=== PATIENT | female | born 1945 | race Two or more races ===

== ENCOUNTER 2022-03-16 03:43 | Emergency (ER) | payer MEDICARE, MEDICAID ==
[~2022-03-16] VITALS: Ht 170.2 cm; Wt 90.0 kg
[2022-03-16] MEDS ORDERED: ACETAMINOPHEN WITH CODEINE 300/30MG TABLET PO ONE (05:30)
[2022-03-16] MEDS ORDERED: OXYC-100 PO (06:35)
[2022-03-16] MEDS ORDERED: OXYCODONE HCL/ACETAMINOPHEN 5/325MG TABLET PO ONE (10:30)
[2022-03-16 11:50] VITALS: BP 128/74
== END 2022-03-16 11:53 ==
LOC: ER 03:43
DX: M25.572 Pain in left ankle and joints of left foot (principal); M79.661 Pain in right lower leg; I10 Essential (primary) hypertension; Z86.73 Personal history of transient ischemic attack (TIA), and cerebral infarction without residual deficits
CPT/HCPCS: 73590; 73610; 99284

== ENCOUNTER 2025-03-22 16:44 | Inpatient (IN) | payer MEDICARE, MEDICAID ==
[~2025-03-22] VITALS: Ht 167.6 cm; Wt 67.1 kg
[~2025-03-22 16:44] MED LIST: CLOP-31 MT; HYDR25TA PO; LIP40 MT; NIFE90TA2 MT; OXYC-100 PO; TRAZ-252 PO
[2025-03-22] MEDS ORDERED: ONDANSETRON HCL 4MG/2ML INJ IV STA (19:09)
[2025-03-22] MEDS ORDERED: MORPHINE SULFATE 2 MG/ML INJ (NOT FOR IM USE) IV ONE (19:15)
[2025-03-22 19:48] LABS: BASOPHILS % 0.3 % (0.0-2.0); EOSINOPHILS % 2.4 % (0.0-5.0); HEMATOCRIT. 32.2 % (36.0-48.0); HEMOGLOBIN. 10.4 g/dL (12.0-16.0); LYMPHOCYTES % 35.8 % (20.0-50.0); MEAN CORPUSCULAR HEMOGLOBIN 28.4 pg (28.0-32.0); MEAN CORPUSCULAR HGB CONC 32.5 g/dL (31.0-37.0); MEAN CORPUSCULAR VOLUME 87.6 fL (81.0-99.0); MEAN PLATELET VOLUME 8.6 fl (7.4-10.4); MONOCYTES % 9.5 % (2.0-8.0); PLATELET 178 x1000/uL (130-400); RED BLOOD CELL COUNT 3.67 mill/uL (4.2-5.4); RED CELL DISTRIBUTION WIDTH 15.6 % (11.6-14.6); WHITE BLOOD COUNT 5.4 x1000/uL (4.5-11.0)
[2025-03-22 19:54] LABS: CHLORIDE 107 mEq/L (98-107); POTASSIUM 4.1 mEq/L (3.5-5.1); SODIUM 142 mEq/L (136-145)
[2025-03-22 19:55] LABS: CARBON DIOXIDE 27 mEq/L (21-32)
[2025-03-22 19:56] LABS: CALCIUM 9.6 mg/dL (8.7-10.4)
[2025-03-22 20:00] LABS: GLUCOSE 107 mg/dL (70-105); PROTHROMBIN TIME 10.8 sec (9.6-11.0)
[2025-03-22 20:01] LABS: TROPONIN I HIGH SENSITIVITY 17 ng/L (3.0-34); UREA NITROGEN BLOOD 23 mg/dL (9-23)
[2025-03-22] MEDS: MORPHINE SULFATE 4 MG/ML INJ (FOR IV/IM USE) IV SCH (21:55)
[2025-03-22] MEDS: ONDANSETRON HCL 4MG/2ML INJ IV SCH (21:55)
[2025-03-22] MEDS: SODIUM CHLORIDE 0.9% 1,000 ML IV SCH (23:15)
[2025-03-22] MEDS ORDERED: GUAIFENESIN 200MG/10ML SUGAR FREE UDC PO PRN (23:15)
[2025-03-22] MEDS ORDERED: IPRATROPIUM/ALBUTEROL 0.5-3(2.5)MG/3ML NEB HHN PRN (23:15)
[2025-03-22] MEDS ORDERED: DOCUSATE SODIUM 100MG CAPSULE PO PRN (23:15)
[2025-03-22] MEDS ORDERED: ACETAMINOPHEN 325MG TABLET PO PRN ×2 (23:15)
[2025-03-22] MEDS ORDERED: ONDANSETRON HCL 4MG/2ML INJ IV PRN (23:15)
[2025-03-23] VITALS (7 sets, daily range): BP systolic 127–159; BP diastolic 55–78; PULSE 60–67; RESP 16–20; TEMP 35.4–36.8; O2SAT 98–100
[2025-03-23] MEDS: MORPHINE SULFATE 4 MG/ML INJ (FOR IV/IM USE) IV NR (01:22)
[2025-03-23] MEDS: KETOROLAC 15MG/ML VIAL IV PRN (05:18)
[2025-03-23] MEDS: HYDROCHLOROTHIAZIDE 25MG TABLET PO SCH (09:01)
[2025-03-23] MEDS: NIFEDIPINE XL 90MG TAB PO SCH (09:02)
[2025-03-23] MEDS: PANTOPRAZOLE 40MG DR TABLET PO SCH (09:02)
[2025-03-23] MEDS: CLOPIDOGREL 75MG TABLET PO SCH (09:02)
[2025-03-23] MEDS: ENOXAPARIN 40MG/0.4ML SYR SUBCUT SCH (09:09)
[2025-03-23 11:03] LABS: BASOPHILS % 0.4 % (0.0-2.0); EOSINOPHILS % 2.9 % (0.0-5.0); HEMATOCRIT. 30.6 % (36.0-48.0); LYMPHOCYTES % 31.2 % (20.0-50.0); MEAN CORPUSCULAR HEMOGLOBIN 28.6 pg (28.0-32.0); MEAN CORPUSCULAR HGB CONC 32.6 g/dL (31.0-37.0); MEAN CORPUSCULAR VOLUME 87.7 fL (81.0-99.0); MEAN PLATELET VOLUME 8.3 fl (7.4-10.4); MONOCYTES % 9.8 % (2.0-8.0); NEUTROPHILS % 55.7 % (40.0-76.0); PLATELET 169 x1000/uL (130-400); RED BLOOD CELL COUNT 3.48 mill/uL (4.2-5.4); RED CELL DISTRIBUTION WIDTH 15.8 % (11.6-14.6); WHITE BLOOD COUNT 4.7 x1000/uL (4.5-11.0)
[2025-03-23 11:06] LABS: CHLORIDE 105 mEq/L (98-107); POTASSIUM 3.9 mEq/L (3.5-5.1); SODIUM 140 mEq/L (136-145)
[2025-03-23 11:07] LABS: CALCIUM 8.9 mg/dL (8.7-10.4); CARBON DIOXIDE 29 mEq/L (21-32)
[2025-03-23 11:12] LABS: GLUCOSE 115 mg/dL (70-105); TRIGLYCERIDE 75 mg/dL (0-150); UREA NITROGEN BLOOD 17 mg/dL (9-23)
[2025-03-23 11:13] LABS: LDL CHOLESTEROL 67 mg/dL (5-100)
[2025-03-23 11:14] LABS: CHOLESTEROL 145 mg/dL (<200); CREATINE KINASE 55 IU/L (34-145); HDL CHOLESTEROL 58 mg/dL (>65)
[2025-03-23 11:16] LABS: T4 FREE 1.11 ng/dL (0.89-1.76)
[2025-03-23 11:17] LABS: THYROID STIMULATING HORMONE 0.65 uIU/mL (0.55-4.78)
[2025-03-23 11:20] LABS: IRON 89 ug/dL (50-170)
[2025-03-23 11:23] LABS: TOTAL IRON BINDING CAPACITY 287 ug/dl (250-425)
[2025-03-23 11:47] LABS: VITAMIN B12 SERUM 676 pg/mL (211-911)
[2025-03-23 11:48] LABS: FOLIC ACID (FOLATE) SERUM 18.71 ng/mL (>5.38)
[2025-03-23] MEDS: HYDROCODONE/ACETAMINOPHEN 5/325MG TABLET PO SCH (16:27)
[2025-03-23 17:27] LABS: CREATINE KINASE 62 IU/L (34-145)
[2025-03-23] MEDS: LORAZEPAM 0.5MG TABLET PO PRN (21:09)
[2025-03-23] MEDS: ATORVASTATIN CALCIUM 40MG TABLET PO SCH (21:10)
[2025-03-24] VITALS: BP 123/78; PULSE 62; RESP 20; TEMP 36.4; O2SAT 97
[2025-03-24] MEDS: QUETIAPINE FUMARATE 25MG TABLET PO NR (02:08)
[2025-03-24 04:00] VITALS: BP 172/72; PULSE 60; RESP 18; TEMP 36.6; O2SAT 98
[2025-03-24] MEDS: CLONIDINE 0.1MG TABLET PO PRN (06:07)
[2025-03-24 08:00] VITALS: BP 165/72; PULSE 57; RESP 16; TEMP 36.2; O2SAT 99
[2025-03-24 12:00] VITALS: BP 162/79; PULSE 58; RESP 16; TEMP 36.2; O2SAT 100
[2025-03-24 15:09] VITALS: BP 110/53; PULSE 87; TEMP 97.6; O2SAT 98
[2025-03-24 16:00] VITALS: BP 140/76; PULSE 81; RESP 20; TEMP 36.6; O2SAT 100
== END 2025-03-24 19:35 | disposition home health service (06) | DRG 563 ==
LOC: ER 16:44 → 6WST 22:06 → EDBEDREQTM 22:15 → EDBEDREQ 22:15 → EDBEDREQTM 22:32 → EDBEDREQ 22:32 → ENRESERV 22:55 → 7EST 03-23 13:19
PROVIDERS: ADMIT Hospitalist; ATTEND Hospitalist
PROC: 2W3CX1Z Immobilization of Right Lower Arm using Splint (ICD-10-PCS; principal; 2025-03-22)
DX: S62.326A Displaced fracture of shaft of fifth metacarpal bone, right hand, initial encounter for closed fracture (principal); I69.354 Hemiplegia and hemiparesis following cerebral infarction affecting left non-dominant side; T76.91XA Unspecified adult maltreatment, suspected, initial encounter; M19.011 Primary osteoarthritis, right shoulder; D64.9 Anemia, unspecified; F41.9 Anxiety disorder, unspecified; I10 Essential (primary) hypertension; Z74.01 Bed confinement status; Z79.02 Long term (current) use of antithrombotics/antiplatelets; X58.XXXA Exposure to other specified factors, initial encounter; Y93.89 Activity, other specified; Y92.89 Other specified places as the place of occurrence of the external cause; Y99.8 Other external cause status; M65.811 Other synovitis and tenosynovitis, right shoulder
CPT/HCPCS: 29125; 36415; 73030; 73060; 73090; 73130; 80048; 80061; 82550; 82607; 82746; 83540; 83550; 84439; 84443; 84484; 85025; 93005; 93970; 96374; 96375; 97166; 99285; A4606; J1650; J1885; J2270; J2405

== ENCOUNTER 2025-04-14 21:06 | Inpatient (IN) | payer MEDICARE, MEDICAID ==
[~2025-04-14] VITALS: Ht 157.5 cm; Wt 65.8 kg
[2025-04-14] MEDS: MORPHINE SULFATE 4 MG/ML INJ (FOR IV/IM USE) IV ONE (22:06)
[2025-04-14 23:33] LABS: BASOPHILS % 0.4 % (0.0-2.0); EOSINOPHILS % 0.2 % (0.0-5.0); HEMATOCRIT. 34.0 % (36.0-48.0); HEMOGLOBIN. 11.1 g/dL (12.0-16.0); LYMPHOCYTES % 11.7 % (20.0-50.0); MEAN PLATELET VOLUME 8.2 fl (7.4-10.4); MONOCYTES % 3.7 % (2.0-8.0); NEUTROPHILS % 84.0 % (40.0-76.0); PLATELET 204 x1000/uL (130-400); RED BLOOD CELL COUNT 3.95 mill/uL (4.2-5.4); RED CELL DISTRIBUTION WIDTH 15.2 % (11.6-14.6)
[2025-04-14 23:48] LABS: CREATININE 1.0 mg/dL (0.6-1.0); INR 1.0
[2025-04-14 23:49] LABS: TROPONIN I HIGH SENSITIVITY 14 ng/L (3.0-34); UREA NITROGEN BLOOD 14 mg/dL (9-23)
[2025-04-14 23:50] LABS: ASPARTATE AMINOTRANSFERASE 24 IU/L (<34); BILIRUBIN DIRECT 0.2 mg/dL (<=3.0)
[2025-04-14 23:51] LABS: BILIRUBIN TOTAL 0.9 mg/dL (0.1-1.0); PROTEIN TOTAL 8.6 g/dL (6.0-8.3)
[2025-04-15] MEDS: ASPIRIN 325MG EC TABLET PO ONE (01:51)
[2025-04-15 03:00] VITALS: BP 164/84; PULSE 91; RESP 20; TEMP 37.4
[2025-04-15] MEDS ORDERED: MAGNESIUM/ALUMINUM HYDROXIDE/SIMETHICONE 30ML UDC PO PRN (03:15)
[2025-04-15] MEDS ORDERED: NALOXONE HCL 0.4MG/ML VIAL IV PRN (03:15)
[2025-04-15] MEDS ORDERED: ACETAMINOPHEN 325MG TABLET PO PRN ×2 (03:15)
[2025-04-15] MEDS ORDERED: LACTULOSE 20G/30ML UDC PO PRN (03:15)
[2025-04-15] MEDS: LACTULOSE 20G/30ML UDC PO NR (03:15)
[2025-04-15] MEDS ORDERED: IPRATROPIUM/ALBUTEROL 0.5-3(2.5)MG/3ML NEB HHN PRN (03:15)
[2025-04-15] MEDS ORDERED: DOCUSATE SODIUM 100MG CAPSULE PO PRN (03:15)
[2025-04-15] MEDS ORDERED: GUAIFENESIN 200MG/10ML SUGAR FREE UDC PO PRN (03:15)
[2025-04-15] MEDS: GABAPENTIN 300MG CAPSULE PO SCH (03:59)
[2025-04-15] MEDS: ONDANSETRON HCL 4MG/2ML INJ IV PRN (03:59)
[2025-04-15] MEDS: PANTOPRAZOLE SODIUM 40 MG/VIAL IV SCH (03:59)
[2025-04-15] MEDS ORDERED: DEXTROSE 50% WATER 50ML SYRINGE IV PRN (04:00)
[2025-04-15] MEDS: NIFEDIPINE XL 90MG TAB PO SCH (04:00)
[2025-04-15] MEDS: POLYETHYLENE GLYCOL 3350 (17GM) 1 DOSE PACK PO SCH (04:02)
[2025-04-15] MEDS: HYDROCODONE/ACETAMINOPHEN 5/325MG TABLET PO PRN (04:02)
[2025-04-15] MEDS: CEFTRIAXONE 1GM/50ML 50 ML IV NR (04:03)
[2025-04-15 04:10] LABS: BASOPHILS % 0.1 % (0.0-2.0); EOSINOPHILS % 0.0 % (0.0-5.0); HEMATOCRIT. 33.6 % (36.0-48.0); HEMOGLOBIN. 11.1 g/dL (12.0-16.0); LYMPHOCYTES % 11.9 % (20.0-50.0); MEAN PLATELET VOLUME 8.2 fl (7.4-10.4); MONOCYTES % 4.0 % (2.0-8.0); NEUTROPHILS % 84.0 % (40.0-76.0); PLATELET 204 x1000/uL (130-400); RED BLOOD CELL COUNT 3.98 mill/uL (4.2-5.4); RED CELL DISTRIBUTION WIDTH 15.0 % (11.6-14.6)
[2025-04-15 04:14] LABS: CREATININE 0.9 mg/dL (0.6-1.0); TRIGLYCERIDE 77 mg/dL (0-150); TROPONIN I HIGH SENSITIVITY 16 ng/L (3.0-34); UREA NITROGEN BLOOD 13 mg/dL (9-23)
[2025-04-15 04:15] LABS: LDL CHOLESTEROL 84 mg/dL (5-100)
[2025-04-15 04:16] LABS: ASPARTATE AMINOTRANSFERASE 23 IU/L (<34); BILIRUBIN DIRECT 0.2 mg/dL (<=3.0); BILIRUBIN TOTAL 0.8 mg/dL (0.1-1.0); PROTEIN TOTAL 8.5 g/dL (6.0-8.3)
[2025-04-15 04:18] LABS: T4 FREE 1.39 ng/dL (0.89-1.76)
[2025-04-15] MEDS: BLOOD SUGAR DIAGNOSTIC STRIP TEST SCH (06:33)
[2025-04-15] MEDS: INSULIN LISPRO 100 UNITS/ML SUBCUT SCH (07:15)
[2025-04-15 08:00] VITALS: BP 181/89; PULSE 98; RESP 18; TEMP 36.4; O2SAT 98
[2025-04-15] MEDS: HYDROCHLOROTHIAZIDE 25MG TABLET PO SCH (08:44)
[2025-04-15] MEDS: FERROUS SULFATE 325MG TABLET PO SCH (08:45)
[2025-04-15] MEDS: CLOPIDOGREL 75MG TABLET PO SCH (08:45)
[2025-04-15] MEDS: ENOXAPARIN 40MG/0.4ML SYR SUBCUT SCH (08:47)
[2025-04-15] MEDS: CLONIDINE 0.1MG TABLET PO PRN (08:49)
[2025-04-15 09:19] LABS: CLARITY URINE CLEAR (CLEAR); COLOR URINE YELLOW (YELLOW); GLUCOSE URINE NEGATIVE (NEGATIVE); KETONES URINE TRACE (NEGATIVE); LEUKOCYTE ESTERASE URINE NEGATIVE (NEGATIVE); NITRITE URINE NEGATIVE (NEGATIVE); OCCULT BLOOD URINE TRACE (NEGATIVE); PH URINE 7.5 (4.5-8.0); PROTEIN URINE 3+ (NEGATIVE); SPECIFIC GRAVITY URINE 1.016 (1.005-1.030); UROBILINOGEN URINE 0.2 E.U./dL (0.2-1.0)
[2025-04-15 09:47] LABS: SQUAMOUS EPITHELIAL CELL URINE 2+ /lpf (RARE/1+)
[2025-04-15 09:48] LABS: RBC URINE 0-2 /hpf (0-2)
[2025-04-15 09:49] LABS: BACTERIA URINE 2+
[2025-04-15 09:52] LABS: *AMPHETAMINES SCREEN URINE NEGATIVE (NEGATIVE); *BARBITURATES SCREEN URINE NEGATIVE (NEGATIVE); *BENZODIAZEPINES SCREEN URINE NEGATIVE (NEGATIVE); *COCAINE SCREEN URINE NEGATIVE (NEGATIVE); CANNABINOID URINE SCREEN PRESUMPTIVE POSITIVE (NEGATIVE); ECSTASY MDMA SCREEN URINE CONF.TEST INDICATED (NEGATIVE); METHADONE URINE SCREEN NEGATIVE (NEGATIVE); OPIATES URINE SCREEN PRESUMPTIVE POSITIVE (NEGATIVE); PHENCYCLIDINE URINE SCREEN NEGATIVE (NEGATIVE)
[2025-04-15 12:00] VITALS: BP 100/53; PULSE 72; RESP 18; TEMP 36.2; O2SAT 99
[2025-04-15 19:04] VITALS: BP 123/63; PULSE 73; RESP 20; TEMP 36.3; O2SAT 98
[2025-04-15] MEDS ORDERED: SENNOSIDES/DOCUSATE SOD 8.6/50MG TABLET PO PRN (19:30)
[2025-04-15] MEDS ORDERED: ONDANSETRON HCL 4MG/2ML INJ IM PRN (19:30)
[2025-04-15 20:00] VITALS: BP 162/75; PULSE 69; RESP 19; TEMP 36.3; O2SAT 99
[2025-04-15 21:14] LABS: TROPONIN I HIGH SENSITIVITY 19 ng/L (3.0-34)
[2025-04-15] MEDS: ATORVASTATIN CALCIUM 40MG TABLET PO SCH (21:46)
[2025-04-15] MEDS: TRAZODONE HCL 50MG TABLET PO SCH (21:47)
[2025-04-15] MEDS: BISACODYL 10MG SUPP PR SCH (22:05)
[2025-04-15] MEDS: NA PHOS,M-B/NA PHOS,DI-BA ENEMA 118ML PR PRN (23:53)
[2025-04-16] VITALS: BP 152/59; PULSE 78; RESP 20; TEMP 36.4; O2SAT 98
[2025-04-16 04:00] VITALS: BP 144/83; PULSE 96; RESP 20; TEMP 36.2; O2SAT 99
[2025-04-16 06:36] LABS: PLATELET 227 x1000/uL (130-400); RED BLOOD CELL COUNT 4.29 mill/uL (4.2-5.4); RED CELL DISTRIBUTION WIDTH 14.6 % (11.6-14.6)
[2025-04-16 06:45] LABS: CREATININE 1.0 mg/dL (0.6-1.0); UREA NITROGEN BLOOD 16 mg/dL (9-23)
[2025-04-16 06:47] LABS: PHOSPHORUS 2.9 mg/dL (2.5-4.9)
[2025-04-16] MEDS ORDERED: LIDOCAINE HCL 1% 10 MG/ML 10ML VIAL ONE (07:56)
[2025-04-16 08:00] VITALS: BP 150/80; PULSE 69; RESP 20; TEMP 36; O2SAT 98
[2025-04-16] MEDS: POTASSIUM CHLORIDE 20MEQ/PACKET PO NR (08:16)
[2025-04-16] MEDS ORDERED: BISA10SU62 RC (09:02)
[2025-04-16] MEDS ORDERED: POLY17PO3 MT (09:02)
[2025-04-16] MEDS: ENOXAPARIN 40MG/0.4ML SYR SUBCUT SCH (09:40)
[2025-04-16] MEDS ORDERED: NITR-87 MT (10:21)
[2025-04-16 12:00] VITALS: BP 130/76; PULSE 77; RESP 18; TEMP 36; O2SAT 97
[2025-04-16 12:17] VITALS: BP 130/76; PULSE 77; TEMP 96.8; O2SAT 97
== END 2025-04-16 15:02 | disposition home or self-care (01) | DRG 391 ==
LOC: ER 21:06 → 5WST 04-15 01:18 → EDBEDREQ 04-15 01:20 → EDBEDREQTM 04-15 01:20 → EDBEDREQDT 04-15 01:20 → ENRESERV 04-15 01:23 → 5WST 04-15 02:43
PROVIDERS: ADMIT Internal Medicine; ATTEND Internal Medicine
DX: K21.9 Gastro-esophageal reflux disease without esophagitis (principal); R53.2 Functional quadriplegia; N39.0 Urinary tract infection, site not specified; F11.20 Opioid dependence, uncomplicated; I69.354 Hemiplegia and hemiparesis following cerebral infarction affecting left non-dominant side; R07.89 Other chest pain; I25.10 Atherosclerotic heart disease of native coronary artery without angina pectoris; I10 Essential (primary) hypertension; K57.30 Diverticulosis of large intestine without perforation or abscess without bleeding; N28.1 Cyst of kidney, acquired; I34.81 Nonrheumatic mitral (valve) annulus calcification; D25.9 Leiomyoma of uterus, unspecified; D64.9 Anemia, unspecified; K59.00 Constipation, unspecified; E05.90 Thyrotoxicosis, unspecified without thyrotoxic crisis or storm; E66.9 Obesity, unspecified; F39 Unspecified mood [affective] disorder; G89.29 Other chronic pain; Z96.641 Presence of right artificial hip joint; M54.50 Low back pain, unspecified; M19.012 Primary osteoarthritis, left shoulder; E11.9 Type 2 diabetes mellitus without complications; R79.89 Other specified abnormal findings of blood chemistry; J47.9 Bronchiectasis, uncomplicated; Z79.02 Long term (current) use of antithrombotics/antiplatelets; Z74.01 Bed confinement status; Z79.899 Other long term (current) drug therapy; Z90.49 Acquired absence of other specified parts of digestive tract; Z68.26 Body mass index [BMI] 26.0-26.9, adult
CPT/HCPCS: 36415; 71045; 74176; 80048; 80061; 80076; 80305; 81003; 82550; 82728; 82962; 83036; 83540; 83550; 83605; 83735; 83880; 84100; 84145; 84439; 84443; 84484; 85025; 85027; 86850; 86900; 93005; 93970; 97166; 99285; A4606; J0696; J1650; J1815; J2003; J2270; J2405; J2470

== ENCOUNTER 2025-07-09 07:01 | Inpatient (IN) | payer MEDICARE, MEDICAID ==
[~2025-07-09] VITALS: Ht 162.6 cm; Wt 67.2 kg
[~2025-07-09 07:01] MED LIST changes: +BISA10SU62 RC; +ENOX40SY27 SQ; +HYDR-4350 MT; +HYDR25TA78 PO; +ISOS30TA91 PO; +LORA-249 PO; -OXYC-100 PO; +POLY17PO3 MT; +TOPUD PO
[2025-07-09 07:10] VITALS: O2SAT 100
[2025-07-09] MEDS: ONDANSETRON HCL 4MG/2ML INJ IV ONE (08:12)
[2025-07-09] MEDS: KETOROLAC 15MG/ML VIAL IV ONE (08:13)
[2025-07-09 08:44] LABS: BASOPHILS % 0.5 % (0.0-2.0); EOSINOPHILS % 1.7 % (0.0-5.0); HEMATOCRIT. 30.9 % (36.0-48.0); HEMOGLOBIN. 10.1 g/dL (12.0-16.0); LYMPHOCYTES % 29.0 % (20.0-50.0); MEAN PLATELET VOLUME 8.3 fl (7.4-10.4); MONOCYTES % 9.4 % (2.0-8.0); NEUTROPHILS % 59.4 % (40.0-76.0); PLATELET 194 x1000/uL (130-400); RED BLOOD CELL COUNT 3.69 mill/uL (4.2-5.4); RED CELL DISTRIBUTION WIDTH 15.5 % (11.6-14.6)
[2025-07-09] MEDS: MORPHINE SULFATE 4 MG/ML INJ (FOR IV/IM USE) IV ONE (08:50)
[2025-07-09 08:55] LABS: CREATININE 0.8 mg/dL (0.6-1.0); TROPONIN I HIGH SENSITIVITY 15 ng/L (3.0-34); UREA NITROGEN BLOOD 12 mg/dL (9-23)
[2025-07-09 08:57] LABS: ASPARTATE AMINOTRANSFERASE 36 IU/L (<34); BILIRUBIN DIRECT 0.2 mg/dL (<=3.0); BILIRUBIN TOTAL 0.7 mg/dL (0.1-1.0)
[2025-07-09 08:58] LABS: PROTEIN TOTAL 8.1 g/dL (6.0-8.3)
[2025-07-09 09:09] LABS: CLARITY URINE CLOUDY (CLEAR); COLOR URINE YELLOW (YELLOW); GLUCOSE URINE NEGATIVE (NEGATIVE); KETONES URINE NEGATIVE (NEGATIVE); LEUKOCYTE ESTERASE URINE NEGATIVE (NEGATIVE); NITRITE URINE NEGATIVE (NEGATIVE); OCCULT BLOOD URINE NEGATIVE (NEGATIVE); PH URINE 8.5 (4.5-8.0); PROTEIN URINE 1+ (NEGATIVE); SPECIFIC GRAVITY URINE 1.012 (1.005-1.030); UROBILINOGEN URINE 0.2 E.U./dL (0.2-1.0)
[2025-07-09 09:31] LABS: BACTERIA URINE NONE SEEN; RBC URINE 0-2 /hpf (0-2); SQUAMOUS EPITHELIAL CELL URINE 1+ /lpf (RARE/1+); WBC URINE 0-2 /hpf (0-2); YEAST URINE NONE SEEN
[2025-07-09 09:32] LABS: AMORPHOUS SEDIMENT URINE 2+ /lpf
[2025-07-09] MEDS ORDERED: DOCUSATE SODIUM 100MG CAPSULE PO PRN (10:45)
[2025-07-09] MEDS ORDERED: DEXTROSE 50% WATER 50ML SYRINGE IV PRN (10:45)
[2025-07-09] MEDS ORDERED: MAGNESIUM/ALUMINUM HYDROXIDE/SIMETHICONE 30ML UDC PO PRN (10:45)
[2025-07-09] MEDS ORDERED: ACETAMINOPHEN 325MG TABLET PO PRN (10:45)
[2025-07-09] MEDS ORDERED: ONDANSETRON HCL 4MG/2ML INJ IV PRN (10:45)
[2025-07-09] MEDS ORDERED: IPRATROPIUM/ALBUTEROL 0.5-3(2.5)MG/3ML NEB HHN PRN (10:45)
[2025-07-09] MEDS: PANTOPRAZOLE SODIUM 40 MG/VIAL IV SCH (10:45)
[2025-07-09] MEDS: CLOPIDOGREL 75MG TABLET PO SCH (11:39)
[2025-07-09] MEDS: NIFEDIPINE XL 90MG TAB PO SCH (11:39)
[2025-07-09] MEDS: ENOXAPARIN 40MG/0.4ML SYR SUBCUT SCH (11:41)
[2025-07-09] MEDS: BLOOD SUGAR DIAGNOSTIC STRIP TEST SCH (11:54)
[2025-07-09 12:00] VITALS: BP 149/80; PULSE 87; RESP 18; TEMP 36.9; O2SAT 100
[2025-07-09] MEDS: BACLOFEN 10MG TABLET PO SCH (12:57)
[2025-07-09] MEDS: QUETIAPINE FUMARATE 25MG TABLET PO SCH (12:58)
[2025-07-09 14:29] LABS: *AMPHETAMINES SCREEN URINE NEGATIVE (NEGATIVE); *BARBITURATES SCREEN URINE NEGATIVE (NEGATIVE); *BENZODIAZEPINES SCREEN URINE NEGATIVE (NEGATIVE); *COCAINE SCREEN URINE NEGATIVE (NEGATIVE); METHADONE URINE SCREEN NEGATIVE (NEGATIVE)
[2025-07-09 14:30] LABS: CANNABINOID URINE SCREEN PRESUMPTIVE POSITIVE (NEGATIVE); ECSTASY MDMA SCREEN URINE NEGATIVE (NEGATIVE); OPIATES URINE SCREEN NEGATIVE (NEGATIVE); PHENCYCLIDINE URINE SCREEN NEGATIVE (NEGATIVE)
[2025-07-09 16:00] VITALS: BP 139/79; PULSE 77; RESP 18; TEMP 36.7; O2SAT 95
[2025-07-09 16:04] VITALS: BP 149/80; PULSE 87; RESP 18; TEMP 36.974
[2025-07-09] MEDS: SENNOSIDES/DOCUSATE SOD 8.6/50MG TABLET PO SCH (16:17)
[2025-07-09 18:39] LABS: TROPONIN I HIGH SENSITIVITY 13 ng/L (3.0-34)
[2025-07-09 20:00] VITALS: PULSE 65; RESP 18; TEMP 36.7; O2SAT 99
[2025-07-09] MEDS: TRAZODONE HCL 50MG TABLET PO SCH (21:00)
[2025-07-09] MEDS: ATORVASTATIN CALCIUM 40MG TABLET PO SCH (21:00)
[2025-07-09] MEDS: LEVETIRACETAM 500MG/5ML CUP PO SCH (21:57)
[2025-07-09] MEDS: HYDROCODONE/ACETAMINOPHEN 10/325MG TABLET PO PRN (23:25)
[2025-07-10] VITALS: BP 126/70; PULSE 90; RESP 18; TEMP 36.4; O2SAT 95
[2025-07-10 00:08] LABS: TROPONIN I HIGH SENSITIVITY 16 ng/L (3.0-34)
[2025-07-10] MEDS: ACETAMINOPHEN 325MG TABLET PO PRN (02:43)
[2025-07-10 04:00] VITALS: BP 133/67; PULSE 65; RESP 18; TEMP 36.7; O2SAT 99
[2025-07-10] MEDS: MELATONIN 3MG TABLET PO PRN (04:42)
[2025-07-10 08:00] VITALS: BP 154/79; PULSE 70; RESP 18; TEMP 36.6; O2SAT 96
[2025-07-10 12:00] VITALS: BP 140/61; PULSE 63; RESP 18; TEMP 36.3; O2SAT 98
[2025-07-10] MEDS ORDERED: DIATR MEGLU/DIATRIZOATE SOLN 30ML PO SCH (13:00)
[2025-07-10 16:00] VITALS: BP 136/80; PULSE 66; RESP 16; TEMP 36.3; O2SAT 98
[2025-07-10 20:00] VITALS: BP 150/71; PULSE 56; RESP 18; TEMP 36.3; O2SAT 99
[2025-07-10] MEDS: SENNOSIDES/DOCUSATE SOD 8.6/50MG TABLET PO SCH (21:00)
[2025-07-11] VITALS: BP 151/74; PULSE 54; RESP 18; TEMP 36.4; O2SAT 99
[2025-07-11] MEDS: HALOPERIDOL LACTATE 5MG/ML VIAL IM PRN (03:56)
[2025-07-11] MEDS: GUAIFENESIN 200MG/10ML SUGAR FREE UDC PO PRN (03:59)
[2025-07-11 04:00] VITALS: BP 156/70; PULSE 59; RESP 18; TEMP 36.5; O2SAT 96
[2025-07-11 07:00] LABS: BASOPHILS % 0.4 % (0.0-2.0); EOSINOPHILS % 2.0 % (0.0-5.0); HEMATOCRIT. 30.8 % (36.0-48.0); HEMOGLOBIN. 10.1 g/dL (12.0-16.0); LYMPHOCYTES % 30.5 % (20.0-50.0); MEAN PLATELET VOLUME 8.5 fl (7.4-10.4); MONOCYTES % 10.6 % (2.0-8.0); NEUTROPHILS % 56.5 % (40.0-76.0); PLATELET 190 x1000/uL (130-400); RED BLOOD CELL COUNT 3.70 mill/uL (4.2-5.4); RED CELL DISTRIBUTION WIDTH 15.6 % (11.6-14.6)
[2025-07-11 07:09] LABS: CREATININE 0.9 mg/dL (0.6-1.0); UREA NITROGEN BLOOD 14 mg/dL (9-23)
[2025-07-11 07:11] LABS: PHOSPHORUS 3.9 mg/dL (2.5-4.9)
[2025-07-11] MEDS ORDERED: NALOXONE HCL 0.4MG/ML VIAL IV PRN (07:15)
[2025-07-11 08:00] VITALS: BP 153/63; PULSE 62; RESP 18; TEMP 36.7; O2SAT 99
[2025-07-11] MEDS: POLYETHYLENE GLYCOL 3350 (17GM) 1 DOSE PACK PO SCH (09:18)
[2025-07-11] MEDS: ISOSORBIDE MONONITRATE 30MG TABLET SR 24HR PO SCH (09:18)
[2025-07-11] MEDS ORDERED: DIATR MEGLU/DIATRIZOATE SOLN 30ML PO PRN (09:45)
[2025-07-11 12:00] VITALS: BP 129/64; PULSE 72; RESP 18; TEMP 36.8; O2SAT 99
[2025-07-11] MEDS: QUETIAPINE FUMARATE 25MG TABLET PO SCH (15:45)
[2025-07-11 16:00] VITALS: BP 140/68; PULSE 69; RESP 20; TEMP 36.6; O2SAT 98
[2025-07-11 20:00] VITALS: BP 132/63; PULSE 79; RESP 16; TEMP 36.9; O2SAT 99
[2025-07-11] MEDS: LACTULOSE 20G/30ML UDC PO SCH (22:29)
[2025-07-11] MEDS: PANTOPRAZOLE 40MG DR TABLET PO SCH (22:29)
[2025-07-12 04:00] VITALS: BP 102/50; PULSE 63; RESP 18; TEMP 36.3; O2SAT 99
[2025-07-12 08:00] VITALS: BP 112/50; PULSE 65; RESP 18; TEMP 36.3; O2SAT 99
[2025-07-12 12:00] VITALS: BP 118/57; PULSE 77; RESP 18; TEMP 36.6; O2SAT 98
[2025-07-12 16:00] VITALS: BP 100/49; PULSE 68; RESP 18; TEMP 36.3; O2SAT 99
[2025-07-12] MEDS ORDERED: DIATR MEGLU/DIATRIZOATE SOLN 30ML PO SCH (16:00)
[2025-07-12] MEDS: DIATR MEGLU/DIATRIZOATE SOLN 30ML PO PRN (16:26)
[2025-07-12 20:00] VITALS: BP_SYST 118; BP_SYST 131; BP_DIAS 57; BP_DIAS 65; PULSE 58; PULSE 70; RESP 16; RESP 18; TEMP 36.2; TEMP 36.4; O2SAT 96; O2SAT 99
[2025-07-13] MEDS ORDERED: IOHEXOL-300 100 ML BOTTLE ONE (00:10)
[2025-07-13 08:00] VITALS: BP 152/76; PULSE 65; RESP 16; TEMP 36.1; O2SAT 98
[2025-07-13 12:00] VITALS: BP 128/70; PULSE 77; RESP 16; TEMP 36.3
[2025-07-13 16:00] VITALS: BP 144/69; PULSE 105; RESP 16; TEMP 36.4
[2025-07-13 20:00] VITALS: BP 166/60; PULSE 81; RESP 17; TEMP 36
[2025-07-13] MEDS: CLONIDINE 0.1MG TABLET PO PRN (20:34)
[2025-07-13] MEDS: NA PHOS,M-B/NA PHOS,DI-BA ENEMA 118ML PR PRN (22:47)
[2025-07-14] VITALS: BP 112/63; PULSE 69; RESP 17; TEMP 35.9
[2025-07-14 04:00] VITALS: BP 110/41; PULSE 57; RESP 17; TEMP 35.8; O2SAT 98
[2025-07-14 08:00] VITALS: BP 124/65; PULSE 71; RESP 17; TEMP 35.9; O2SAT 97
[2025-07-14 12:00] VITALS: BP 123/80; PULSE 68; RESP 18; TEMP 36.6; O2SAT 92
[2025-07-14 15:00] VITALS: BP 119/72; PULSE 79; RESP 20; TEMP 98.1
[2025-07-20] MEDS ORDERED: NIFE90TA60 PO (02:16)
== END 2025-07-14 19:10 | disposition home or self-care (01) | DRG 948 ==
LOC: ER 07:01 → 5WST 09:19 → EDBEDREQ 09:20 → EDBEDREQTM 09:20 → EDBEDREQSVC 09:20
PROVIDERS: ADMIT Internal Medicine; ATTEND Internal Medicine
DX: G89.3 Neoplasm related pain (acute) (chronic) (principal); F03.93 Unspecified dementia, unspecified severity, with mood disturbance; N39.0 Urinary tract infection, site not specified; K56.41 Fecal impaction; D49.89 Neoplasm of unspecified behavior of other specified sites; R33.9 Retention of urine, unspecified; I10 Essential (primary) hypertension; E78.5 Hyperlipidemia, unspecified; I25.10 Atherosclerotic heart disease of native coronary artery without angina pectoris; F32.9 Major depressive disorder, single episode, unspecified; F41.1 Generalized anxiety disorder; F32.A Depression, unspecified; D63.8 Anemia in other chronic diseases classified elsewhere; G40.909 Epilepsy, unspecified, not intractable, without status epilepticus; Z74.01 Bed confinement status; Z90.49 Acquired absence of other specified parts of digestive tract; I69.30 Unspecified sequelae of cerebral infarction; Z79.899 Other long term (current) drug therapy
CPT/HCPCS: 36415; 74176; 74177; 80048; 80076; 80305; 81003; 82378; 82550; 82962; 83735; 84100; 84484; 85025; 85044; 93005; 96374; 96375; 99285; A4606; J1630; J1650; J1885; J2270; J2405; J2470; Q9963; Q9967

== ENCOUNTER 2025-07-29 02:52 | Inpatient (IN) | payer MEDICARE, MEDICAID ==
[~2025-07-29] VITALS: Ht 167.6 cm; Wt 66.9 kg
[~2025-07-29 02:52] MED LIST changes: -ENOX40SY27 SQ; -TOPUD PO
[2025-07-29 02:54] VITALS: O2SAT 98
[2025-07-29 03:53] LABS: BASOPHILS % 0.7 % (0.0-2.0); EOSINOPHILS % 1.8 % (0.0-5.0); HEMATOCRIT. 37.2 % (36.0-48.0); HEMOGLOBIN. 11.8 g/dL (12.0-16.0); LYMPHOCYTES % 33.2 % (20.0-50.0); MEAN PLATELET VOLUME 8.5 fl (7.4-10.4); MONOCYTES % 5.3 % (2.0-8.0); NEUTROPHILS % 59.0 % (40.0-76.0); PLATELET 187 x1000/uL (130-400); RED BLOOD CELL COUNT 4.33 mill/uL (4.2-5.4); RED CELL DISTRIBUTION WIDTH 16.5 % (11.6-14.6)
[2025-07-29 04:06] LABS: CREATININE 0.9 mg/dL (0.6-1.0)
[2025-07-29 04:07] LABS: ETHANOL BLOOD < 10 mg/dL (<10); UREA NITROGEN BLOOD 20 mg/dL (9-23)
[2025-07-29 04:08] LABS: ASPARTATE AMINOTRANSFERASE 27 IU/L (<34); TROPONIN I HIGH SENSITIVITY 13 ng/L (3.0-34)
[2025-07-29 04:09] LABS: BILIRUBIN DIRECT 0.2 mg/dL (<=3.0); BILIRUBIN TOTAL 0.7 mg/dL (0.1-1.0); PROTEIN TOTAL 8.5 g/dL (6.0-8.3)
[2025-07-29] MEDS: ONDANSETRON HCL 4MG/2ML INJ IV ONE (04:26)
[2025-07-29] MEDS: ACETAMINOPHEN 1000MG/100ML 100 ML IV ONE (04:33)
[2025-07-29] MEDS: ONDANSETRON HCL 4MG/2ML INJ IV NR (04:33)
[2025-07-29] MEDS: MORPHINE SULFATE 4 MG/ML INJ (FOR IV/IM USE) IV NR (04:55)
[2025-07-29 08:33] VITALS: BP 129/62; PULSE 69; RESP 18; TEMP 36.4736
[2025-07-29] MEDS ORDERED: NALOXONE HCL 0.4MG/ML VIAL IV PRN (09:30)
[2025-07-29] MEDS: HYDROCODONE/ACETAMINOPHEN 10/325MG TABLET PO PRN (09:46)
[2025-07-29 12:00] VITALS: BP 125/60; PULSE 80; RESP 20; TEMP 36.5; O2SAT 96
[2025-07-29] MEDS ORDERED: IPRATROPIUM/ALBUTEROL 0.5-3(2.5)MG/3ML NEB HHN PRN (12:00)
[2025-07-29] MEDS ORDERED: ACETAMINOPHEN 325MG TABLET PO PRN ×2 (12:00)
[2025-07-29] MEDS ORDERED: ONDANSETRON HCL 4MG/2ML INJ IV PRN (12:00)
[2025-07-29] MEDS ORDERED: FAMO20TA8 PO (12:17)
[2025-07-29] MEDS ORDERED: NIFE90TA60 PO (12:17)
[2025-07-29] MEDS ORDERED: BACL-141 PO (12:17)
[2025-07-29] MEDS ORDERED: HYDR-4009 PO (12:17)
[2025-07-29] MEDS ORDERED: ATOR40TA70 PO (12:17)
[2025-07-29] MEDS ORDERED: LISI10TA26 PO (12:17)
[2025-07-29] MEDS ORDERED: TORS5TAB11 PO (12:17)
[2025-07-29] MEDS ORDERED: CARV12.545 PO (12:17)
[2025-07-29] MEDS ORDERED: LEVE500T19 PO (12:17)
[2025-07-29] MEDS ORDERED: DULO30CA52 PO (12:18)
[2025-07-29] MEDS ORDERED: TRAZ-252 PO (12:18)
[2025-07-29] MEDS ORDERED: QUET25TA36 PO (12:20)
[2025-07-29] MEDS ORDERED: ALPR0.25 PO (12:20)
[2025-07-29] MEDS ORDERED: CLOPIDOGREL 75MG TABLET PO SCH (12:30)
[2025-07-29] MEDS: POLYETHYLENE GLYCOL 3350 (17GM) 1 DOSE PACK PO SCH (13:21)
[2025-07-29] MEDS: ISOSORBIDE MONONITRATE 30MG TABLET SR 24HR PO SCH (13:21)
[2025-07-29] MEDS: ENOXAPARIN 30MG/0.3ML SYR SUBCUT SCH (13:22)
[2025-07-29] MEDS: NIFEDIPINE XL 90MG TAB PO SCH (13:22)
[2025-07-29] MEDS ORDERED: HYDRALAZINE HCL 25MG TABLET PO SCH (14:00)
[2025-07-29 16:00] VITALS: BP 134/62; PULSE 85; RESP 18; TEMP 36.6; O2SAT 95
[2025-07-29 20:00] VITALS: BP 118/56; PULSE 71; RESP 18; TEMP 36.4; O2SAT 96
[2025-07-29] MEDS ORDERED: TRAZODONE HCL 50MG TABLET PO SCH (21:00)
[2025-07-29] MEDS: ATORVASTATIN CALCIUM 40MG TABLET PO SCH (21:38)
[2025-07-29] MEDS: TRAZODONE HCL 50MG TABLET PO SCH (21:40)
[2025-07-30] VITALS: BP 114/63; PULSE 91; RESP 18; TEMP 36.2; O2SAT 98
[2025-07-30] MEDS: LORAZEPAM 0.5MG TABLET PO PRN (00:22)
[2025-07-30 04:00] VITALS: BP 119/63; PULSE 66; RESP 18; TEMP 36.4; O2SAT 98
[2025-07-30 08:00] VITALS: BP 105/54; PULSE 70; RESP 17; TEMP 36.6; O2SAT 100
[2025-07-30] MEDS ORDERED: HYDROCHLOROTHIAZIDE 25MG TABLET PO SCH (09:00)
[2025-07-30] MEDS: BISACODYL 10MG SUPP RC PRN (10:16)
[2025-07-30] MEDS: DOCUSATE SODIUM 100MG CAPSULE PO PRN (10:16)
[2025-07-30] MEDS: LACTULOSE 20G/30ML UDC PO PRN (10:16)
[2025-07-30 12:00] VITALS: BP 119/49; PULSE 66; RESP 17; TEMP 36.2; O2SAT 94
[2025-07-30 13:27] LABS: CLARITY URINE CLEAR (CLEAR); COLOR URINE YELLOW (YELLOW); GLUCOSE URINE NEGATIVE (NEGATIVE); KETONES URINE NEGATIVE (NEGATIVE); LEUKOCYTE ESTERASE URINE NEGATIVE (NEGATIVE); NITRITE URINE NEGATIVE (NEGATIVE); OCCULT BLOOD URINE NEGATIVE (NEGATIVE); PH URINE 7.5 (4.5-8.0); PROTEIN URINE NEGATIVE (NEGATIVE); SPECIFIC GRAVITY URINE 1.011 (1.005-1.030); UROBILINOGEN URINE 0.2 E.U./dL (0.2-1.0)
[2025-07-30 13:56] LABS: *AMPHETAMINES SCREEN URINE NEGATIVE (NEGATIVE)
[2025-07-30 13:57] LABS: *BARBITURATES SCREEN URINE NEGATIVE (NEGATIVE); *BENZODIAZEPINES SCREEN URINE NEGATIVE (NEGATIVE); *COCAINE SCREEN URINE NEGATIVE (NEGATIVE); CANNABINOID URINE SCREEN NEGATIVE (NEGATIVE); ECSTASY MDMA SCREEN URINE NEGATIVE (NEGATIVE); METHADONE URINE SCREEN NEGATIVE (NEGATIVE); OPIATES URINE SCREEN PRESUMPTIVE POSITIVE (NEGATIVE); PHENCYCLIDINE URINE SCREEN NEGATIVE (NEGATIVE)
[2025-07-30 20:00] VITALS: BP 165/72; PULSE 82; RESP 19; TEMP 36.6; O2SAT 100
[2025-07-30] MEDS: CLONIDINE 0.1MG TABLET PO PRN (23:36)
[2025-07-31] VITALS: PULSE 69; RESP 18; TEMP 36.4; O2SAT 97
[2025-07-31 04:30] VITALS: BP 140/66; PULSE 69; RESP 18; TEMP 36.5; O2SAT 99
[2025-07-31 08:00] VITALS: BP 154/61; PULSE 64; RESP 12; TEMP 36.6; O2SAT 98
[2025-07-31 09:12] LABS: BASOPHILS % 0.3 % (0.0-2.0); EOSINOPHILS % 2.6 % (0.0-5.0); HEMATOCRIT. 29.6 % (36.0-48.0); HEMOGLOBIN. 9.5 g/dL (12.0-16.0); LYMPHOCYTES % 32.6 % (20.0-50.0); MEAN PLATELET VOLUME 8.9 fl (7.4-10.4); MONOCYTES % 10.2 % (2.0-8.0); NEUTROPHILS % 54.3 % (40.0-76.0); PLATELET 169 x1000/uL (130-400); RED BLOOD CELL COUNT 3.56 mill/uL (4.2-5.4); RED CELL DISTRIBUTION WIDTH 15.7 % (11.6-14.6)
[2025-07-31 09:31] LABS: CREATININE 0.9 mg/dL (0.6-1.0); UREA NITROGEN BLOOD 16 mg/dL (9-23)
[2025-07-31 12:00] VITALS: BP 133/67; PULSE 72; RESP 16; TEMP 36.4; O2SAT 99
[2025-07-31 20:00] VITALS: BP 115/55; PULSE 70; RESP 16; TEMP 36.4; O2SAT 99
[2025-08-01] VITALS: BP 126/57; PULSE 80; RESP 16; TEMP 36.4; O2SAT 98
[2025-08-01 04:00] VITALS: BP 155/75; PULSE 74; PULSE 79; RESP 18; TEMP 36.4; O2SAT 98
[2025-08-01 07:18] LABS: CREATININE 0.8 mg/dL (0.6-1.0); UREA NITROGEN BLOOD 13 mg/dL (9-23)
[2025-08-01 07:26] LABS: BASOPHILS % 0.2 % (0.0-2.0); EOSINOPHILS % 2.0 % (0.0-5.0); HEMATOCRIT. 32.6 % (36.0-48.0); HEMOGLOBIN. 10.5 g/dL (12.0-16.0); LYMPHOCYTES % 28.6 % (20.0-50.0); MEAN PLATELET VOLUME 8.8 fl (7.4-10.4); MONOCYTES % 6.6 % (2.0-8.0); NEUTROPHILS % 62.6 % (40.0-76.0); PLATELET 181 x1000/uL (130-400); RED BLOOD CELL COUNT 3.95 mill/uL (4.2-5.4); RED CELL DISTRIBUTION WIDTH 16.0 % (11.6-14.6)
[2025-08-01 08:00] VITALS: BP 149/75; PULSE 79; RESP 16; TEMP 37; O2SAT 100
[2025-08-01 12:00] VITALS: BP 129/96; PULSE 84; RESP 18; TEMP 36.8; O2SAT 100
[2025-08-01 16:00] VITALS: BP 128/59; PULSE 79; RESP 16; TEMP 36.8; O2SAT 98
[2025-08-01 16:25] VITALS: BP 128/59; PULSE 79; RESP 16; TEMP 98.2
== END 2025-08-01 16:39 | DRG 392 ==
LOC: ER 02:52 → 8WST 05:24 → EDBEDREQ 05:29 → EDBEDREQTM 05:30 → 8EST 18:30
PROVIDERS: ADMIT Internal Medicine; ATTEND Internal Medicine
DX: K59.00 Constipation, unspecified (principal); I69.354 Hemiplegia and hemiparesis following cerebral infarction affecting left non-dominant side; D64.9 Anemia, unspecified; I10 Essential (primary) hypertension; F03.90 Unspecified dementia, unspecified severity, without behavioral disturbance, psychotic disturbance, mood disturbance, and anxiety; F32.A Depression, unspecified; R73.03 Prediabetes; F41.9 Anxiety disorder, unspecified; Z79.899 Other long term (current) drug therapy
CPT/HCPCS: 36415; 74176; 80048; 80076; 80305; 80320; 81003; 84484; 85025; 96365; 96375; 99285; J1650; J2270; J2405; G0480; J0131

== ENCOUNTER 2025-08-19 09:32 | Inpatient (IN) | payer MEDICARE, MEDICAID ==
[~2025-08-19] VITALS: Ht 167.6 cm; Wt 68.0 kg
[~2025-08-19 09:32] MED LIST changes: +ALPR0.25 PO; +ATOR40TA70 PO; +BACL-141 PO; -BISA10SU62 RC; +CARV12.545 PO; -CLOP-31 MT; +DULO30CA52 PO; +FAMO20TA8 PO; -HYDR-4350 MT; -HYDR25TA PO; -HYDR25TA78 PO; +LEVE500T19 PO; -LIP40 MT; +LISI10TA26 PO; -LORA-249 PO; -NIFE90TA2 MT; +NIFE90TA60 PO; -POLY17PO3 MT; +QUET25TA36 PO; +TORS5TAB11 PO; -TRAZ-252 PO
[2025-08-19 09:34] VITALS: O2SAT 99
[2025-08-19] MEDS ORDERED: DEXTROSE 50% WATER 50ML SYRINGE IV PRN (13:00)
[2025-08-19] MEDS ORDERED: ONDANSETRON HCL 4MG/2ML INJ IV PRN (13:00)
[2025-08-19] MEDS ORDERED: IPRATROPIUM/ALBUTEROL 0.5-3(2.5)MG/3ML NEB HHN PRN (13:00)
[2025-08-19] MEDS ORDERED: ACETAMINOPHEN 325MG TABLET PO PRN (13:00)
[2025-08-19 13:23] LABS: BASOPHILS % 0.4 % (0.0-2.0); EOSINOPHILS % 1.9 % (0.0-5.0); HEMATOCRIT. 31.2 % (36.0-48.0); HEMOGLOBIN. 9.8 g/dL (12.0-16.0); LYMPHOCYTES % 29.6 % (20.0-50.0); MEAN PLATELET VOLUME 9.3 fl (7.4-10.4); MONOCYTES % 7.2 % (2.0-8.0); NEUTROPHILS % 60.9 % (40.0-76.0); PLATELET 159 x1000/uL (130-400); RED BLOOD CELL COUNT 3.76 mill/uL (4.2-5.4); RED CELL DISTRIBUTION WIDTH 16.2 % (11.6-14.6)
[2025-08-19 13:35] LABS: CREATININE 0.7 mg/dL (0.6-1.0); UREA NITROGEN BLOOD 18 mg/dL (9-23)
[2025-08-19 13:37] LABS: TROPONIN I HIGH SENSITIVITY 16 ng/L (3.0-34)
[2025-08-19] MEDS: ONDANSETRON HCL 4MG/2ML INJ IV ONE (13:40)
[2025-08-19] MEDS: MORPHINE SULFATE 2 MG/ML INJ (NOT FOR IM USE) IV ONE (13:41)
[2025-08-19] MEDS: BACLOFEN 10MG TABLET PO SCH (13:41)
[2025-08-19] MEDS: ENOXAPARIN 40MG/0.4ML SYR SUBCUT SCH (13:42)
[2025-08-19] MEDS ORDERED: LORAZEPAM 2MG/ML UD SYRINGE IV PRN (14:00)
[2025-08-19 14:46] VITALS: BP 146/68; PULSE 53; RESP 15; TEMP 36.696
[2025-08-19 16:00] VITALS: BP 157/57; PULSE 54; RESP 11; TEMP 37.3; O2SAT 100
[2025-08-19 17:21] LABS: *AMPHETAMINES SCREEN URINE NEGATIVE (NEGATIVE); *BARBITURATES SCREEN URINE NEGATIVE (NEGATIVE); *BENZODIAZEPINES SCREEN URINE NEGATIVE (NEGATIVE); *COCAINE SCREEN URINE NEGATIVE (NEGATIVE); CANNABINOID URINE SCREEN NEGATIVE (NEGATIVE); METHADONE URINE SCREEN NEGATIVE (NEGATIVE); OPIATES URINE SCREEN PRESUMPTIVE POSITIVE (NEGATIVE); PHENCYCLIDINE URINE SCREEN NEGATIVE (NEGATIVE)
[2025-08-19 17:22] LABS: ECSTASY MDMA SCREEN URINE NEGATIVE (NEGATIVE)
[2025-08-19] MEDS: LISINOPRIL 10MG TABLET PO SCH (17:51)
[2025-08-19] MEDS: ISOSORBIDE MONONITRATE 30MG TABLET SR 24HR PO SCH (17:51)
[2025-08-19 20:00] VITALS: BP 138/63; PULSE 59; RESP 15; TEMP 37.2; O2SAT 100
[2025-08-19] MEDS: ATORVASTATIN CALCIUM 40MG TABLET PO SCH (21:43)
[2025-08-19] MEDS: QUETIAPINE FUMARATE 50MG TABLET PO SCH (21:43)
[2025-08-20] VITALS: BP 128/57; PULSE 55; RESP 14; TEMP 36.7; O2SAT 98
[2025-08-20 00:09] LABS: CREATINE KINASE MB FRACTION < 0.5 ng/mL (0.5-3.6)
[2025-08-20 00:10] LABS: TROPONIN I HIGH SENSITIVITY 21 ng/L (3.0-34)
[2025-08-20 03:44] LABS: HEPATITIS C AB REACTIVE (Pos) (Negative)
[2025-08-20 04:00] VITALS: BP 131/60; PULSE 52; RESP 12; TEMP 36.7; O2SAT 98
[2025-08-20 07:47] LABS: BASOPHILS % 0.3 % (0.0-2.0); EOSINOPHILS % 2.1 % (0.0-5.0); HEMATOCRIT. 31.6 % (36.0-48.0); HEMOGLOBIN. 10.0 g/dL (12.0-16.0); LYMPHOCYTES % 36.3 % (20.0-50.0); MEAN PLATELET VOLUME 9.2 fl (7.4-10.4); MONOCYTES % 8.7 % (2.0-8.0); NEUTROPHILS % 52.6 % (40.0-76.0); PLATELET 170 x1000/uL (130-400); RED BLOOD CELL COUNT 3.80 mill/uL (4.2-5.4); RED CELL DISTRIBUTION WIDTH 16.1 % (11.6-14.6)
[2025-08-20 07:57] LABS: CREATINE KINASE MB FRACTION < 0.5 ng/mL (0.5-3.6)
[2025-08-20 08:00] VITALS: BP 123/67; PULSE 53; RESP 14; TEMP 36.8; O2SAT 98
[2025-08-20 08:00] LABS: CREATININE 0.9 mg/dL (0.6-1.0); TRIGLYCERIDE 88 mg/dL (0-150); UREA NITROGEN BLOOD 17 mg/dL (9-23)
[2025-08-20 08:01] LABS: LDL CHOLESTEROL 47 mg/dL (5-100); T4 FREE 1.07 ng/dL (0.89-1.76)
[2025-08-20] MEDS ORDERED: ISOSORBIDE MONONITRATE 30MG TABLET SR 24HR PO SCH (09:00)
[2025-08-20] MEDS ORDERED: LISINOPRIL 10MG TABLET PO SCH (09:00)
[2025-08-20] MEDS: FAMOTIDINE 20MG/2ML VIAL IV SCH (09:05)
[2025-08-20] MEDS: DULOXETINE HCL 30MG DR CAPSULE PO SCH (09:06)
[2025-08-20] MEDS: LEVETIRACETAM 500MG TABLET PO SCH (09:07)
[2025-08-20] MEDS ORDERED: DOCUSATE SODIUM 250MG CAPSULE PO PRN (09:30)
[2025-08-20 12:00] VITALS: BP 110/63; PULSE 63; RESP 13; TEMP 36.8; O2SAT 97
[2025-08-20 12:47] LABS: ASPARTATE AMINOTRANSFERASE 33 IU/L (<34); BILIRUBIN DIRECT < 0.1 mg/dL (<=3.0); BILIRUBIN TOTAL 0.3 mg/dL (0.1-1.0); PROTEIN TOTAL 7.2 g/dL (6.0-8.3)
[2025-08-20 16:00] VITALS: BP 140/71; PULSE 65; RESP 15; TEMP 37; O2SAT 100
[2025-08-20] MEDS: SODIUM CHLORIDE 0.9% 1,000 ML IV SCH (16:03)
[2025-08-20] MEDS: KETOROLAC 15MG/ML VIAL IV PRN (17:58)
[2025-08-20 20:00] VITALS: BP 113/65; PULSE 66; RESP 16; TEMP 36.8; O2SAT 97
[2025-08-20] MEDS: ACETAMINOPHEN 325MG TABLET PO PRN (21:06)
[2025-08-21] VITALS: BP 106/56; PULSE 60; RESP 12; TEMP 36.7; O2SAT 97
[2025-08-21 04:00] VITALS: BP 149/68; PULSE 54; RESP 12; TEMP 36.6; O2SAT 97
[2025-08-21 08:00] VITALS: BP 179/79; PULSE 52; RESP 16; TEMP 36.3; O2SAT 100
[2025-08-21 08:18] LABS: CREATININE 0.9 mg/dL (0.6-1.0)
[2025-08-21 08:19] LABS: UREA NITROGEN BLOOD 18 mg/dL (9-23)
[2025-08-21 08:21] LABS: PHOSPHORUS 4.2 mg/dL (2.5-4.9)
[2025-08-21 08:37] LABS: PLATELET 89 x1000/uL (130-400); RED BLOOD CELL COUNT 3.83 mill/uL (4.2-5.4); RED CELL DISTRIBUTION WIDTH 16.5 % (11.6-14.6)
[2025-08-21 12:00] VITALS: TEMP 36.4
[2025-08-21 16:00] VITALS: BP 155/78; PULSE 65; RESP 16; TEMP 36.8; O2SAT 100
[2025-08-21 20:00] VITALS: BP 157/70; PULSE 67; RESP 19; TEMP 37.1; O2SAT 97
[2025-08-21] MEDS: ALPRAZOLAM 0.25 MG TABLET PO PRN (21:25)
[2025-08-22] VITALS: BP 148/70; PULSE 64; RESP 14; TEMP 36.8; O2SAT 99
[2025-08-22 04:00] VITALS: BP 180/68; PULSE 66; RESP 14; TEMP 36.7; O2SAT 99
[2025-08-22 08:00] VITALS: BP 191/83; PULSE 53; RESP 11; TEMP 36.9; O2SAT 99
[2025-08-22] MEDS ORDERED: CLONIDINE 0.1MG TABLET PO PRN (10:00)
[2025-08-22 11:41] VITALS: BP 112/65; PULSE 60; RESP 15; TEMP 98.4
[2025-08-22 12:00] VITALS: BP 122/56; PULSE 59; RESP 13; TEMP 36.9; O2SAT 99
[2025-08-22] MEDS: NIFEDIPINE XL 90MG TAB PO SCH (14:29)
[2025-08-23] MEDS ORDERED: NIFEDIPINE XL 90MG TAB PO SCH (09:00)
== END 2025-08-22 16:45 | DRG 392 ==
LOC: ER 09:52 → EDBEDREQTM 12:43 → EDBEDREQ 12:43 → 3WST 14:15
PROVIDERS: ADMIT Internal Medicine; ATTEND Internal Medicine
PROC: GZ56ZZZ Individual Psychotherapy, Supportive (ICD-10-PCS; principal; 2025-08-21)
DX: K21.9 Gastro-esophageal reflux disease without esophagitis (principal); D64.9 Anemia, unspecified; F03.93 Unspecified dementia, unspecified severity, with mood disturbance; I10 Essential (primary) hypertension; G40.909 Epilepsy, unspecified, not intractable, without status epilepticus; F03.94 Unspecified dementia, unspecified severity, with anxiety; R07.89 Other chest pain; R00.1 Bradycardia, unspecified; Z86.73 Personal history of transient ischemic attack (TIA), and cerebral infarction without residual deficits; Z74.01 Bed confinement status; Z79.899 Other long term (current) drug therapy
CPT/HCPCS: 36415; 71045; 80048; 80061; 80076; 80305; 82550; 82553; 83036; 83735; 83880; 84100; 84439; 84443; 84484; 85025; 85027; 85379; 86705; 87340; 93005; 96372; 96374; 96375; 99285; A4606; J1308; J1650; J1885; J2270; J2405